=== PATIENT | female | born 1990 | race Two or more races ===

== ENCOUNTER 2018-09-10 15:02 | Emergency (ER) | payer SELFPAY ==
[~2018-09-10] VITALS: Ht 170.2 cm; Wt 61.2 kg
[2018-09-10 16:31] VITALS: BP 121/79
[2018-09-10] MEDS ORDERED: KETOROLAC TROMETH 60MG/2ML VIAL IM ONE (17:00)
[2018-09-10] MEDS ORDERED: diphenhdrAMINE HCL 25 MG CAP PO ONE (17:00)
[2018-09-10] MEDS ORDERED: PROMETHAZINE HCL 25 MG/ML 1ML IM ONE (17:00)
== END 2018-09-10 17:12 | disposition home or self-care (01) ==
LOC: ER 15:02
DX: S13.4XXA Sprain of ligaments of cervical spine, initial encounter (principal); M25.511 Pain in right shoulder; R51 Headache; R42 Dizziness and giddiness; V43.52XA Car driver injured in collision with other type car in traffic accident, initial encounter; Y93.I9 Activity, other involving external motion; Y92.488 Other paved roadways as the place of occurrence of the external cause; Y99.8 Other external cause status
CPT/HCPCS: 70450; 73030; 96372; 99284; J1885; J2550